=== PATIENT | female | born 1965 | race Caucasian/White ===

== ENCOUNTER 2025-06-19 11:09 | Emergency (ER) | payer BC, SELFPAY ==
[2025-06-19 11:09] VITALS: BP 139/74; PULSE 70; RESP 14; TEMP 36.8; O2SAT 96; BMI 22.4
--- NOTE | 2025-06-19 12:31 | EX.ED.DYSGE1 ---
HPI History of Present Illness Chief Complaint: Ear Problem Narrative Narrative: 60-year-old female presents with 2-1/2 weeks of swollen lymph nodes and sore area in front of her right ear and in the right side of her neck. She denies any fevers or chills, no nausea or vomiting. She states that 2 days ago she became somewhat lightheaded and dizzy. Also, she has had a lesion on her forehead that is red and raised for the last few weeks as well. She does not have an appointment with a primary care provider until July, approximately 1 month from now. She states that the area in front of her right ear has a tender lump that is movable which may be getting bigger. Directly below on her neck is another swollen lymph node. She denies any redness to the area, no exacerbating or alleviating factors. No loss of hearing. PFSH PFS Medical History no medical history Home Medications ?Medication ?Instructions ?Recorded ?Last Taken ?Type amoxicillin 875 mg-potassium 1 tab PO BID #20 tabs 06/19/25 Unknown Rx clavulanate 125 mg tablet Allergy/AdvReac Type Severity Reaction Status Date / Time No Known Allergies Allergy Verified 06/19/25 11:10 Family History no significant family his Surgical History Previous section Surgical History no surgical history Social History Smoking Status: Never smoker ROS ROS ED ROS Narrative Review of systems positive for tender swollen lump in front of right ear, and on right side of neck. No fevers or chills, no nausea or vomiting, no loss of hearing. Reports lesion on scalp has been there for few weeks but was unsure what it may be from. 2 days of lightheadedness and dizziness intermittent. EXAM Physical Exam Narrative Exam Narrative: Afebrile. Vital signs noted. Nontoxic-appearing. On the forehead is a red raised area consistent with abscess/furuncle. No fluctuance, no surrounding cellulitis or crepitance. Positive preauricular lymph node enlarged. No pain with movement of tragus or auricle. Right TM clear without erythema. No mastoid tenderness or erythema. Positive cervical inflamed lymph node without cellulitis. Airway patent. No drooling or trismus. Const Vital Signs: 06/19/25 11:09 Temperature 98.3 F Temperature Source Temporal Pulse Rate 70 Respiratory Rate 14 Blood Pressure 139/74 H Blood Pressure Mean 95 Pulse Ox 96 Oxygen Delivery Method Room Air MDM MDM MDM Narrative Medical decision making narrative: I do not feel that laboratory work is indicated. I do feel that she probably has more of a preauricular and cervical lymph node inflamed from a small abscess on her forehead. I do not feel that the abscess/furuncle requires incision and drainage as there is no fluctuance. It is less than 1 cm in diameter as well. I have low suspicion for lymphoma as the lymph nodes are movable. She was told that lymph nodes can be inflamed for a few months. She was referred to primary care and she will be placed on antibiotics in the form of Augmentin 875 mg orally twice a day for 10 days. I feel she can be discharged safely home to use warm compresses as well. Return instructions to the emergency department were reviewed. Disposition is discharged home in stable condition. History & Record Review Discussion w/independent historian: Patient Discharge Plan Triage Chief Complaint: Ear Problem Other Complaint: Dizziness ED Provider: Ivan Cano Dx/Rx/DC Orders Clinical Impression: Abscess of forehead, Lymphadenopathy of head and neck Instructions: ED Abscess Antibiotic Treatment Only, ED ADENITIS Cervical Abx Tx Prescriptions: New amoxicillin-pot clavulanate 875-125 mg tablet 1 tab PO BID Qty: 20 0RF Referrals: Angel Olvera MD [Med Staff - Behavior Specialist, Family Practice] - As soon as possible Activity Restrictions/Additional Instructions: Take antibiotics as directed. Warm compresses to sore areas. Inflamed lymph nodes can take months to resolve. Return with fever, redness to area, new or worsening symptoms. Follow-up with primary care. Print Language: Romansh Disposition Disposition: Home, Self Care
[2025-06-19 12:40] VITALS: BP 123/82; PULSE 60; RESP 16; TEMP 36.8; O2SAT 99
== END 2025-06-19 12:43 | disposition home or self-care (01) ==
LOC: ED 12:40
PROVIDERS: Emergency Provider Emergency Medicine; Visit Provider Emergency Medicine
DX: L02.01 Cutaneous abscess of face (principal); R42 Dizziness and giddiness; R59.9 Enlarged lymph nodes, unspecified
CPT/HCPCS: 99283